=== PATIENT | female | born 1955 | race Caucasian/White ===

== ENCOUNTER 2019-11-11 16:37 | Emergency (ER) | payer OTHER ==
--- OUTSIDE RECORDS SUMMARY | 2019-11-11 17:06 | XMS ---
:1955 Author Organization [facility] Care Team Providers Name Role Phone MARGARITA EMAD, EMAD Unavailable Unavailable SEBAS RUIZUTA, SOLEDAD Unavailable Unavailable Re-disclosure Warning The records that you are about to access may contain information from federally- assisted alcohol or drug abuse programs. If such information is present, then the following federally mandated warning applies: This information has been disclosed to you from records protected by federal confidentiality rules (42 CFR part 2). The federal rules prohibit you from making any further disclosure of this information unless further disclosure is expressly permitted by the written consent of the person to whom it pertains or as otherwise permitted by 42 CFR part 2. A general authorization for the release of medical or other information is NOT sufficient for this purpose. The Federal rules restrict any use of the information to criminally investigate or prosecute any alcohol or drug abuse patient.The records that you are about to access may contain highly sensitive health information, the redisclosure of which is protected by Article 27-F of the [facility] Public Health law. If you continue you may haveaccess to information: Regarding HIV / AIDS; Provided by facilities licensed or operated by the [facility] Office of Mental Health; or Provided by the [facility] Office for People With Developmental Disabilities. If such information is present, then the following [facility] mandated warning applies: This information has been disclosed to you from confidential records which are protected by state law. State law prohibits you from making any further disclosure of this information without the specific written consent of the person to whom it pertains, or as otherwise permitted by law. Any unauthorized further disclosure in violation of state law may result in a fine or care home sentence or both. A general authorization for the release of medical or other information is NOT sufficient authorization for further disclosure. Allergies and Adverse Reactions Type Description Substance Reaction Status Data Source(s ) Food allergy No Known Food No Known Food [facility] Drug allergy No Known Drug No Known Drug [facility] Allergies Allergies Medical [place] Encounters Encounter Providers Location Date Indications Data Source(s ) Outpatient Attender: SOLEDAD H 07/20/2018 [facility] 08:58:00 [facility] DANUTAAdmitter: EDT SOLEDAD SEBAS DANUTAReferrer: EMAD MARGARITA EMAD Outpatient Attender: SOLEDAD H 07/13/2018 [facility] 02:23:00 PM [facility] DANUTAAdmitter: EDT SOLEDAD MULLEN DANUTAReferrer: EMAD MARGARITA EMAD Insurance Providers Payer name Policy type Policy ID Covered Covered libertarian's Policy P jose daniel / Coverage libertarian ID relationship to [place] [facility] ormation type [place] [id number] [place] [id number] HMO O MVP/HHP O [id number] [id number] [place] [id number] [facility] Problems, Conditions, and Diagnoses Code Display Name Description Problem Type Effective Data Sour ce(s) Dates M79.602 Pain in left arm PAIN IN LEFT ARM Diagnosis 07/20/2018 [facility] rosales [facility] 08:58:00 AM [facility] EDT R26.89 Other OTHER Diagnosis 07/20/2018 [facility] abnormalities of ABNORMALITIES [facility]:58:[facility] [place] [facility] and mobility GAIT AND MOBILITY EDT I69.354 Hemiplegia and HEMIPLGA FOLLOWING Diagnosis 07/20/2018 [facility] rosales Menjivar hemiparesis CEREBRAL INFRC 08:58:00 AM Medical Center following cerebral AFFECTING LEFT EDT infarction NONDOM SIDE affecting left non-dominant side M62.81 Muscle weakness MUSCLE WEAKNESS Diagnosis 07/13/2018 Oksana Menjivar (generalized) (GENERALIZED) 02:23:00 PM Medical Center EDT M24.312 Pathological PATHOLOGICAL Diagnosis 07/13/2018 [facility] dislocation of DISLOCATION OF 02:23:00 PM Medic al Center left shoulder, not LEFT SHOULDER, NEC EDT elsewhere classified M25.512 Pain in left PAIN IN LEFT Diagnosis 07/13/2018 [facility] shoulder SHOULDER 02:23:00 PM Medical [facility] EDT 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
[2019-11-11 17:26] VITALS: TEMP 97.8; BMI 34.7
[2019-11-11] MEDS ORDERED: GLUCAGON 1 MG KIT IVPUSH ONE (17:56)
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
[2019-11-11] MEDS ORDERED: GlUCAGON HUMAN RECOMBINANT 1 MG/VIAL ONE (18:06)
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
[2019-11-11 18:32] LABS: EOS % 0.5 % (0-4.5); HEMATOCRIT 37.5 % (32.4-45.2); HEMOGLOBIN 12.4 GM/dL (10.7-15.3); MCH 29.8 pg (25.7-33.7); MEAN CELL VOLUME 90.1 fl (80-96); MEAN PLT VOLUME 8.5 fl (7.5-11.1); MONO % 23.9 % (3.8-10.2); NEUT % 66.6 % (42.8-82.8); PLATELET COUNT 401 K/MM3 (134-434); RBC 4.17 M/mm3 (3.60-5.2); RDW 15.2 % (11.6-15.6); WHITE BLOOD COUNT 15.6 K/mm3 (4.0-10.0)
[2019-11-11 18:57] LABS: ALBUMIN 3.4 g/dl (3.4-5.0); BILIRUBIN,TOTAL 0.3 mg/dL (0.2-1); CALCIUM 9.1 mg/dL (8.5-10.1); CREATININE 0.8 mg/dL (0.55-1.3); POTASSIUM 3.9 mmol/L (3.5-5.1); TOT PROT 8.1 g/dl (6.4-8.2)
[2019-11-11 19:17] VITALS: BP 155/75; PULSE 75
[2019-11-11 20:16] LABS: ANISOCYTOSIS 1+; MACROCYTOSIS 1+; PLATELET ESTIMATE NORMAL
--- NOTE | 2019-11-13 12:30 | EKG ---
Test Reason : Blood Pressure : / mmHG Vent. Rate : 087 BPM Atrial Rate : 087 BPM P-R Int : 144 ms QRS Dur : 090 ms QT Int : 376 ms P-R-T Axes : 026 -13 082 degrees QTc Int : 452 ms NORMAL SINUS RHYTHM INFERIOR INFARCT , AGE UNDETERMINED ABNORMAL ECG WHEN COMPARED WITH ECG OF 11-APR-2017 08:29, INFERIOR INFARCT IS NOW PRESENT T WAVE INVERSION LESS EVIDENT IN ANTEROLATERAL LEADS Confirmed by Anthony Ansari MD ([id number]) on 11/13/2019 12:30:06 PM Referred By: Confirmed By:Anthony Ansari MD
== END 2019-11-11 19:18 | disposition home or self-care (01) ==
LOC: JER 16:37
PROC: 3E013VG Introduction of Insulin into Subcutaneous Tissue, Percutaneous Approach (ICD-10-PCS; principal; 2019-11-11)
DX: T17.320A Food in larynx causing asphyxiation, initial encounter (principal); T17.308A Unspecified foreign body in larynx causing other injury, initial encounter; R13.10 Dysphagia, unspecified
CPT/HCPCS: 36415; 80053; 85025; 93005; 93010; 99284-25

== ENCOUNTER 2021-09-05 11:11 | Emergency (ER) | payer OTHER ==
[2021-09-05 11:33] VITALS: BP 149/72; PULSE 70; TEMP 97.6; BMI 37.0
== END 2021-09-05 15:19 | disposition home or self-care (01) ==
LOC: JER 11:11 → JERFT 11:11
DX: S90.422A Blister (nonthermal), left great toe, initial encounter (principal); Y99.9 Unspecified external cause status
CPT/HCPCS: 99282-25